=== PATIENT | male | born 1970 | race Caucasian/White ===

== ENCOUNTER 2023-04-15 14:34 | Outpatient (CLI) | payer BC ==
--- NOTE | 2023-04-15 15:32 | SLEEP CARE CONSULTATION ---
Information from patient questionnaire entered by Sandra Wilson. I have reviewed and concur with the information entered by Sandra Wilson. This document represents the service I personally performed and the decisions made by me, Darlyn Do ARNP. History of Present Illness Service Date and Time: 04/15/2023 1434 Reason for Visit: New patient, sleep apnea on CPAP therapy Chief Complaint: reports: Other (UPDATE SUPPLIES) Date of Onset: Usual bedtime: 1130 PM Time it takes to fall asleep: 5-10MIN Snores at night: Yes Observed to quit breathing while asleep: Yes Sleeps alone due to snoring: No Number of times waking at night: 1-3 Reasons for waking at night: reports: Gasping for air, Bathroom Toss, Turn, or Twitch while sleeping: Yes Recalls having dreams: Yes Usually gets out of bed at: 7AM Feels refreshed in the morning: No Morning headache: Yes Sleepy or fatigued during the day: Yes Ever fallen asleep while driving: Yes Takes day naps: Yes Dreams during day naps: No Prior sleep studies: Yes Year and Where: 2006 [place], [place] Additional HPI information: LIAM TORRES was previously diagnosed to have severe, AHI 37.3, obstructive sleep apnea-hypopnea syndrome as seen in sleep study dated 05/29/2007 at [facility] in [place], [place] and comes in today to establish care for CPAP therapy. - Parasomnia Symptoms Ever been unable to move upon waking from sleep: No Walks in sleep: No Talks in sleep: No Ever acted out dreams in sleep: No Ever felt weak in the knees when startled or emotional: Yes Bothered by creepy, crawly, restless sensations in legs: Yes Problems with memory or concentration: Yes CPAP Compliance Data - Data Reviewed with Patient Average duration of nightly device use: 7 hours 29 minutes Compliance rate %: 93 (28/30 days used; 03-16-2023 to 04-14-2023) Current pressure setting (cmH2O): 12-20 Average residual AHI: 0.2 Central apnea: 0 Obstructive apnea: 0.1 Average large leak: 0 l/min Compliance data discussion: He has a [employer] Airsense 10 that he received in 2020. He is with [facility] for CPAP supplies. He is using a nasal pillows mask made by [employer]. He does have a backup mask if needed. He changes his cushion every 1-2 months as needed. Subjective Patient concerns: denies: aerophagia, mask discomfort, air blowing in eyes, mask leak noise, condensation in mask/hose, nasal congestion, dry mouth, nose, throat, epistaxis Observed to snore while using device: No Current pressure setting perceived as: comfortable On therapy, patient: reports: sleeping better, awakening more refreshed, being more awake and alert during the day, more rested overall. 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 Patient is and lives in [place]. Have you smoked in the past 12 months: No Alcohol use: No Caffeine use: Yes Caffeine amount and frequency: 12-20OZ PER DAY Family History Family history of sleep disordered breathing: Yes Family Hx Sleep Apnea: Mother: Snoring, Father: Snoring Allergies and Home Medications Known drug allergies: Yes (CIPRO, LOSARTAN) Drug allergies reviewed: Yes Home medication list reviewed: Yes (see updated list in EMR) Review of Systems Weight gain over past 5 years: 200 Cardiovascular: reports: high blood pressure, leg or foot swelling Respiratory: denies: shortness of breath Gastrointestinal: reports: diarrhea. denies: heartburn Urinary: reports: incontinence, frequency, urgency, impotence Neurological: reports: headaches, gait or balance problems Psychiatric: denies: anxiety, depression, mood disorder Ear/Nose/Throat: reports: nasal congestion, dry mouth/throat. denies: tonsillectomy Endocrine: reports: sluggishness, increased urination Musculoskeletal: reports: joint pain, neck pain, back pain, joint swelling, muscle pain or cramping, mobility problems Immunologic: reports: allergies to food or environment (some hayfever, pollen) Physical Exam Vital signs obtained and entered by: SANDRA Welsh MA Blood Pressure: 132/88 (LEFT ARM) Cuff size: long Heart Rate: 74 O2 Saturation: 98 Height: 5 ft 11 in Weight: 482 lb 6.4 oz Body Mass Index: 67.2 BMI Classification: Morbidly Obese Neck circumference: 20.75 Heart: regular rate and rhythm Lungs: clear bilaterally Impression and Plan 1. Obstructive Sleep Apnea-Hypopnea Syndrome, severe, with good treatment compliance and good apnea control. On CPAP therapy, the patient has better sleep quality and is more rested overall. Patient is doing well with his CPAP at his current settings. He is with [facility] for his supplies and I will update his prescription. Patient has significant improvement of their sleep apnea and is satisfied with current CPAP therapy. Patient denies problems with oral dryness, nasal congestion, epistaxis, skin irritation or aerophagia. Patient's apnea severity and rationale for treatment to reduce apnea, improve sleep quality and reduce cardiovascular and cerebrovascular events was reviewed. I also reviewed the benefit of consistent device use of CPAP for hypertension and diabetes. 2. Obesity, unspecified. Currently patients BMI is 67.2. Obesity increases the risk of apnea, CPAP pressure requirements and overall health risks especially cardiovascular and diabetes. Thus patient is advised to lose weight. The patient's CPAP pressure range should accommodate some weight loss. * Continue auto CPAP pressure at 12-20 cmH2O * Update supply prescription with DME * Notify me if snoring with mask or feeling that the pressure is too much or too little * Attempt to lose weight * Call this office if any problems using CPAP * Return for follow up in 1 year, or sooner if concerns arise Counseling Topics: Spare mask, Weight loss health impact Visit Type: In Office Time Spent with Patient (minutes): 31 Provider Statement: I spent 100% of the Face to Face Visit with the patient with greater than 50% spent counseling the patient and coordination of care.
[2023-04-15 15:35] VITALS: BP 132/88
== END 2023-04-15 14:35 | disposition home or self-care (01) ==
LOC: SC 14:34
PROVIDERS: ATTEND Nurse Practitioner Family
DX: G47.33 Obstructive sleep apnea (adult) (pediatric) (principal); E66.01 Morbid (severe) obesity due to excess calories; Z68.44 Body mass index [BMI] 60.0-69.9, adult
CPT/HCPCS: 99203; 99212